=== PATIENT | female | born 1945 | race Caucasian/White ===

== ENCOUNTER → 2019-09-11 | Outpatient (CLI) | payer MEDICARE, OTHER ==
[2014-08-09 15:18] VITALS: BP 112/54
[~2019-09-11] MED LIST: CELE200C PO; ESOM40CA PO; FLUO20CA8 PO; HYDR-3165 PO; METO-247 PO; OLME1TAB23 PO; TRAM50TA PO; WARF-78 PO
--- NOTE | 2019-09-11 15:29 | RAD ---
DATE: 09/11/2019. EXAM: MAMMO RAMON SCREENING BILATERAL. HISTORY: Routine mammographic screening. COMPARISON: 09/27/2014. This study was interpreted with the benefit of Computerized Aided Detection (CAD). FINDINGS: Breast Density: SCATTERED The breast parenchyma shows scattered fibroglandular densities. Breast parenchyma level B.. Scattered calcifications are benign. There are no suspicious masses, microcalcifications or architectural distortion. The parenchymal pattern is stable. BI-RADS CATEGORY: 2 BENIGN FINDING(S). RECOMMENDED FOLLOW-UP: 12M 12 MONTH FOLLOW-UP. PQRS compliance statement: Patient information was entered into a reminder system with a target due date 09/11/2020 for the next mammogram. Mammography is a sensitive method for finding small breast cancers, but it does not detect them all and is not a substitute for careful clinical examination. A negative mammogram does not negate a clinically suspicious finding and should not result in delay in biopsying a clinically suspicious abnormality. "Our facility is accredited by the [employer] Mammography Program."
== END | disposition home or self-care (01) ==
LOC: MAMMO 13:41
PROVIDERS: ATTEND Family Medicine
DX: Z12.31 Encounter for screening mammogram for malignant neoplasm of breast (principal); N64.89 Other specified disorders of breast
CPT/HCPCS: 77063; 77067

== ENCOUNTER → 2021-01-07 | Outpatient (CLI) | payer MEDICARE, OTHER ==
[2014-08-09 15:18] VITALS: BP 112/54
[~2021-01-07] MED LIST changes: +FLUO20CA20 PO; -FLUO20CA8 PO; -WARF-78 PO; +WARF5TAB2 PO
--- NOTE | 2021-01-07 10:53 | RAD ---
Examination: Bilateral digital diagnostic mammogram. INDICATION: 75-year-old woman due for screening presents for evaluation of a left axillary mass prese nt for the past year. COMPARISON: Bilateral mammogram of 09/11/2019 TECHNIQUE: CC and MLO views of both breasts were obtained with 2-D and 3-D technique and reviewed wit h computer-aided detection. FINDINGS: Scattered fibroglandular densities. The right mammogram is negative. The left mammogram shows a triangular palpable marker at the superior edge of the [id number] on th e MLO view without an obvious mammographic correlate. IMPRESSION: Incomplete. Left breast needs additional imaging with ultrasound of the left axilla in the area of pa lpable concern. BI-RADS Category 0 Incomplete. Left breast needs additional imaging with targeted ultrasound of the left axilla. This will be performed and reported separately. Patient entered into a reminder system with targeted due date for next mammogram. Electronically signed by: Con Li MD (01/07/2021 10:50 AM) [id number]
--- NOTE | 2021-01-07 17:18 | RAD ---
Examination: Left axillary ultrasound INDICATION: 75-year-old woman with left axillary lump present for approximately one year. She was due for mammography and on mammography, with recommended for left axillary ultrasound. COMPARISON: Bilateral mammogram of 01/07/2021, screening bilateral mammogram of 09/11/2019. TECHNIQUE: Targeted ultrasound of the left axilla in the area of palpable concern was performed using grayscale and color Doppler imaging. FINDINGS: Ultrasound of the area of palpable concern identifies a 7.2 x 5.1 x 4.6 cm irregular hypoechoic mass that correlates with the area of palpable concern. No axillary lymph nodes were identified at this vi sit. IMPRESSION: A 7 cm mass in the left axilla with irregular margins is suspicious for malignancy. Biopsy should be considered. BI-RADS Category 4 Findings suspicious for malignancy. In advance of pursuing a biopsy however, additional imaging with CT of the chest with IV contrast is recommended to fully assess the extent of this mass and its relationship to the adjacent neurovascula r structures. Discussed with the patient in person via deaf interpreter services prior to her discharge from [facility], and with her referring physician Dr. Wang by telephone at approximately 10:30 AM on 01/07/2021 Electronically signed by: Con Li MD (01/07/2021 5:15 PM) [id number]
== END ==
LOC: MAMMO 09:10
PROVIDERS: ATTEND Family Medicine
DX: R22.2 Localized swelling, mass and lump, trunk (principal)
CPT/HCPCS: 76881; 77066; G0279; 77062

== ENCOUNTER → 2021-01-15 | Outpatient (CLI) | payer MEDICARE, OTHER ==
[2014-08-09 15:18] VITALS: BP 112/54
[~2021-01-15] MED LIST changes: +IOHEXOL 300 MG/ML 100ML VIAL. IV ONE
[2021-01-15 09:39] LABS: GFR 54.1
--- NOTE | 2021-01-15 14:45 | RAD ---
CT THORAX W History: Reason: axillary fullness, mass of left axilla / Spl. Instructions: omni 300 60ml / History: Comparison: Left axillary ultrasound 01/07/2021. Technique: CT chest with intravenous contrast. Findings: Aorta and Great Vessels: No aneurysm of the aortic arch or thoracic aorta is seen. Thyroid: No significant abnormalities. Mediastinum and farhan: No mediastinal masses or adenopathy is seen. Esophagus: Large paraesophageal hiatal hernia. Esophagus is normal. Heart: Normal. No pericardial effusion. Trachea: The visualized tracheobronchial tree is normal. Lungs: The lungs are clear. Pleural Space: There is no pneumothorax or pleural effusion. Upper Abdomen: Mild colonic diverticulosis. Renal cortical atrophy. Osseous Structures and Soft Tissues: Homogeneous left axillary soft tissue mass measuring approximate ly 5.5 x 4.2 x 5.2 cm, congruent with appearance on ultrasound, size difference is likely based on di fferences in technique. Osseous structures are unremarkable. Impression: 1. Nonspecific homogeneous left axillary soft tissue mass measuring up to 5.5 cm congruent with appe arance on ultrasound is concerning for primary tumor or metastatic mass. Tissue sampling is recommend ed. 2. Moderate paraesophageal hernia. 3. No other mass or adenopathy in the chest suspicious for primary metastatic disease. ------ Exposure: One or more of the following individualized dose reduction techniques were utilized for thi s examination: 1. Automated exposure control 2. Adjustment of the mA and/or kV according to patient size 3. Use of iterative reconstruction technique. Electronically signed by: Robert Conley MD (01/15/2021 2:42 PM) [facility]
== END ==
LOC: CT 09:08
PROVIDERS: ATTEND Family Medicine
DX: K57.30 Diverticulosis of large intestine without perforation or abscess without bleeding (principal); N26.1 Atrophy of kidney (terminal)
CPT/HCPCS: 36415; 71260; 82565; 84520; Q9967

== ENCOUNTER → 2021-01-31 | Outpatient (CLI) | payer MEDICARE, OTHER ==
[2014-08-09 15:18] VITALS: BP 112/54
[~2021-01-31] MED LIST changes: -IOHEXOL 300 MG/ML 100ML VIAL. IV ONE
--- NOTE | 2021-01-31 13:13 | RAD ---
ADDENDUM #1 Addendum: The pathology findings corresponding with the aforementioned left axillary biopsy demonstra te a spindle cell tumor, having immunophenotypic features of fibromatosis. The pathology findings are concordant with the imaging findings. Surgical consultation is recommended. Electronically signed by: Nubia Molina MD (02/26/2021 4:19 PM) [facility] ORIGINAL REPORT EXAM: Sonographic guided left axillary biopsy and biopsy clip placement. HISTORY: 75-year-old female presents for sonographic and biopsy of a left axillary mass demonstrated on a sonogram performed 01/07/2021. TECHNIQUE: The risks of the procedure discussed with the patient and written and verbal consent was o btained. A timeout was performed. Sonographic imaging of the left axilla was performed and the lesion of concern measuring approximately 5.6 cm was identified. The skin in this location was sterilely pr epped, draped and infiltrated with 1 percent Lidocaine. Multiple core samples were obtained through the lesion of concern with sonographic guidanc e. A biopsy clip was advanced into the central aspect of the lesion. Manual compression was maintaine d until hemostasis achieved. A sterile bandage was placed. The patient tolerated the procedure withou t immediate complication. IMPRESSION: Sonographic guided biopsy of a left axillary mass and biopsy clip placement. An addendum to this report will be submitted when pathology results are available. Electronically signed by: Nubia Molina MD (01/31/2021 1:11 PM) [id number]
--- NOTE | 2021-02-04 15:08 | PATHOLOGY ---
[facility] Accession Number: [id number] . 01 Material submitted: . axilla - LEFT AXILLA BIOPSY. Modifiers: left . 01 Clinical history: . PRE-OPERATIVE DIAGNOSIS: LEFT AXILLA MASS MASS 7.2CM . 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 SEE COMMENT. (JPM:mickey; 02/04/2021) S 02/04/2021 0920 Local . 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 The tumor cells have an elongate spindle cell configuration with indistinct cytoplasmic borders. The tumor cells possess elongate, wavy and tapered bland appearing nuclei. The tumor cells have an associated collagenous and focally myxoid appearing stroma. There is no evidence of necrosis or significant mitotic activity. There is no evidence of epithelial differentiation. A panel of immunoperoxidase stains is obtained on block A2 and yields the following results: . Cytokeratin NATHANIEL: Tumor cells negative. Cytokeratin 5/6: Tumor cells negative. High molecular weight cytokeratin: Tumor cells negative. P63: Tumor cells negative. Smooth muscle actin: Tumor cells positive. Desmin: Few scattered tumor cells positive. S100: Tumor cells negative. CD34: Tumor cells negative; blood vessels positive. Beta-catenin: Tumor cells positive with presence of some nuclear staining. . The morphologic and immunophenotypic findings are supportive of the diagnosis of fibromatosis. There is no evidence of metaplastic carcinoma. The case is also examined by Dr. Burrows, who agrees with the diagnosis on 02/04/2021. (JPM:mickey; 02/04/2021) . Special stains performed: Immunoperoxidase stains for cytokeratin NATHANIEL, CK5/6, high molecular weight cytokeratin, p63, smooth muscle actin, desmin, S100, CD34, beta-catenin . 02 Electronically signed: . Marcial Mendoza MD, Pathologist NPI- [id number] . 01 Gross description: . Received in formalin labeled "Angela Blackman, Lt axilla" are three cylindrical amezquita-white soft tissue cores measuring 0.2 cm in diameter and ranging from 2.0-2.3 cm in length. The specimen is submitted entirely in cassettes A1-A3. ([facility] [place]; 01/31/2021) [facility] 01/31/2021 1707 Local . 02 Pathologist provided ICD-10: D48.7 . 02 CPT . 107359, [id number], [id number] Specimen Comment: A courtesy copy of this report has been sent to [phone], [phone] Specimen Comment: [id number] Specimen Comment: Report sent to / DR GA Specimen Comment: A duplicate report has been generated due to demographic updates. Performed at: 01 [facility] [address] [facility] [address], [place] [id number] MD Champ Cerda MD Phone: [phone] Performed at: 02 [facility] [address], [place] [id number] MD Marcial Mendoza MD Phone: [phone]
== END | disposition home or self-care (01) ==
LOC: US 12:12
PROVIDERS: ATTEND Family Medicine
DX: R22.32 Localized swelling, mass and lump, left upper limb (principal); M72.8 Other fibroblastic disorders; R22.2 Localized swelling, mass and lump, trunk; D21.3 Benign neoplasm of connective and other soft tissue of thorax; Z79.899 Other long term (current) drug therapy
CPT/HCPCS: 20206; 76942; 88305; 88341; 88342; C1713; 10005